=== PATIENT | female | born 1960 ===

== ENCOUNTER 2021-02-24 14:57 | Outpatient (CLI) | payer OTHER | END 2021-02-24 15:02 | disposition home or self-care (01) | LOC: NUCLEAR 14:57 | PROVIDERS: ATTEND Obstetrics & Gynecology | DX: M81.0 Age-related osteoporosis without current pathological fracture (principal) ==

== ENCOUNTER → 2021-02-24 | Outpatient (CLI) | payer OTHER | END | disposition home or self-care (01) | LOC: MAMO-SONO 13:40 | PROVIDERS: ATTEND Obstetrics & Gynecology | DX: N60.11 Diffuse cystic mastopathy of right breast (principal); Z12.31 Encounter for screening mammogram for malignant neoplasm of breast ==